=== PATIENT | female | born 1985 | race Caucasian/White ===

== ENCOUNTER 2022-01-02 15:00 | Inpatient (IN) ==
[2022-01-02 16:16] LABS: Creatinine,Urine 38 mg/dL; Protein/Creatinine Ratio,Urine 0.26 mg/mg (0.00-0.20)
[2022-01-02 16:25] LABS: Eosinophils % 0.9 %; Hematocrit 37.4 % (35.3-44.9)
[2022-01-02 16:26] LABS: Alanine Aminotransferase 7 Units/L (7-52); Aspartate Amino Transferase 12 Units/L (13-39); BUN/Creatinine Ratio 12 (6-26); Basophils % 0.4 %; Blood Urea Nitrogen 10 mg/dL (6-20); Eosinophils # 0.1 K/mcL (0.0-0.6); Hemoglobin 12.7 g/dL (11.5-15.4); Immature Granulocytes % 1.6 % (0-4); Immature Platelets 20.6 % (1.1-6.1); Lactate Dehydrogenase 152 Units/L (140-271); Lymphocytes # 1.9 K/mcL (0.6-4.6); Lymphocytes % 27.7 %; Mean Corpuscular Hemoglobin 32.6 pg (28.0-33.3); Mean Corpuscular Volume 95.9 fL (83.0-100.0); Mean Platelet Volume 13.1 fL (9.4-12.4); Monocytes # 0.7 K/mcL (0.0-1.3); Monocytes % 10.5 %; Neutrophils # 4.1 K/mcL (1.6-8.9); Platelet Count 131 K/mcL (140-400); Red Cell Distribution Width 13.3 % (11.5-14.5); Segmented Neutrophils % 58.9 %; Uric Acid 7.1 mg/dL (2.3-7.6); White Blood Count 6.9 K/mcL (4.3-11.1); eGFR For African Americans > 60 (> 60); eGFR For Non-African Americans > 60 (> 60)
[2022-01-02 16:34] LABS: Platelet Estimate Normal (Normal)
[2022-01-02] MEDS ORDERED: EPHEDrine 50 MG/ML VIAL IVP PRN (16:50)
[2022-01-02 17:58] LABS: Bacteria,Urine Moderate per hpf (None-Few); Bilirubin,Urine Negative (Negative); Blood,Urine Trace (Negative); Calcium Oxalate Crystals,Urine Present per hpf; Clarity,Urine Turbid (Clear); Color,Urine Light-Yellow (Yellow); Glucose,Urine (UA) Normal (Normal); Ketones,Urine Negative (Negative); Leukocyte Esterase,Urine Moderate (Negative); Mucus,Urine Few per lpf (None-Few); Nitrite,Urine Negative (Negative); Protein,Urine Trace mg/dL (Neg-Trace); RBC,Urine 0-3 per hpf (0-3); Specific Gravity,Urine 1.009 (1.010-1.025); Squamous Epithelial Cell,Urine Moderate per hpf (None-Few); Urobilinogen,Urine Normal (Normal)
[2022-01-02] MEDS ORDERED: Metoclopramide 10 MG/2 ML VIAL IVP PRN (20:02)
[2022-01-02] MEDS ORDERED: Naloxone 0.4 MG/ML INJ IVP PRN (20:02)
[2022-01-02] MEDS ORDERED: *HR* Nalbuphine 10 MG/ML AMPUL IV PRN (20:02)
[2022-01-02] MEDS ORDERED: Famotidine 20 MG/2 ML VIAL IVP PRN (20:02)
[2022-01-02 20:31] LABS: Amphetamine Screen,Urine Negative ng/mL (Cutoff=1000); Barbiturate Screen,Urine Negative ng/mL (Cutoff=200); Benzodiazepines Screen,Urine Negative ng/mL (Cutoff=200); Cannabinoid Screen,Urine Negative ng/mL (Cutoff = 50); Cocaine Screen,Urine Negative ng/mL (Cutoff= 300); Opiate Screen,Urine Negative ng/mL (Cutoff=300); Phencyclidine Screen,Urine Negative ng/mL (Cutoff=25)
[2022-01-02] MEDS: Ringers Solution, Lactated 1,000 ML IVC SCH (20:38)
[2022-01-02] MEDS ORDERED: miSOPROStoL 25 MCG TABLET PO ONE (20:55)
[2022-01-02 21:29] LABS: Influenza A PCR Negative (Negative); Influenza B PCR Negative (Negative); Resp. Syncytial Virus PCR Negative (Negative)
[2022-01-02 21:37] LABS: SARS-CoV-2 by PCR (In House) Negative (Negative)
[2022-01-03] MEDS: Oxytocin 30 UNIT/503 ML BAG IVC SCH ×2 (02:02→15:10)
[2022-01-03] MEDS: Ringers Solution, Lactated 1,000 ML IVC SCH ×2 (04:17→14:08)
[2022-01-03] MEDS: Epidural Premix (fent/bupiv) 110 ML EP SCH ×2 (13:55→19:54)
[2022-01-04] MEDS ORDERED: Lanolin 7 G OINT...G. TP PRN (00:44)
[2022-01-04] MEDS ORDERED: Ondansetron ODT 4 MG TAB.RAPDIS SL PRN (00:44)
[2022-01-04] MEDS ORDERED: Benzocaine/Menthol 56 GM AEROSOL SPRAY TP PRN (00:44)
[2022-01-04] MEDS ORDERED: OXYTOCIN/RINGERS LACTATE 10 UNIT/166.6 ML BAG IVC ONE (00:44)
[2022-01-04] MEDS: Ibuprofen 600 MG TABLET PO SCH ×3 (01:40→14:29)
[2022-01-04] MEDS: Acetaminophen 325 MG TABLET PO SCH ×3 (01:40→14:28)
[2022-01-04 03:21] VITALS: O2SAT 98
[2022-01-04 05:57] LABS: Basophils % 0.2 %; Eosinophils % 0.1 %; Hematocrit 31.8 % (35.3-44.9); Lymphocytes # 1.5 K/mcL (0.6-4.6); Mean Corpuscular HGB Conc 34.3 g/dL (31.6-35.5); Mean Corpuscular Hemoglobin 32.5 pg (28.0-33.3); Mean Corpuscular Volume 94.9 fL (83.0-100.0); Monocytes % 5.9 %; Neutrophils # 13.8 K/mcL (1.6-8.9); Platelet Count 119 K/mcL (140-400); Red Blood Count 3.35 M/mcL (3.82-4.97); Red Cell Distribution Width 13.2 % (11.5-14.5); Segmented Neutrophils % 83.8 %; White Blood Count 16.5 K/mcL (4.3-11.1)
[2022-01-04 05:58] LABS: Hemoglobin 10.9 g/dL (11.5-15.4)
[2022-01-04] MEDS ORDERED: Prenatal Vit/FA 1 EACH TABLET PO SCH (09:00)
[2022-01-04 11:36] VITALS: BP 122/81; PULSE 70; TEMP 97.7
[2022-01-04] MEDS ORDERED: Rho Immune Globulin 1,500 UNIT SYRINGE IM ONE (14:16)
== END 2022-01-04 14:52 | disposition home or self-care (01) | DRG 560 ==
LOC: INTOOBSV 15:00 → 1NENULAB 15:00 → 1NENUOBS 01-04 01:28
PROVIDERS: ADMIT Obstetrics & Gynecology; ATTEND Obstetrics & Gynecology